=== PATIENT | male | born 1985 | race African-American/Black ===

== ENCOUNTER 2016-06-21 11:51 | Observation (INO) | payer BC ==
[~2016-06-21] VITALS: Ht 182.9 cm; Wt 73.6 kg
--- NOTE | ~2016-06-21 | HP ---
ADMIT: 06/21/2016 RM/LOC: [address] [facility] MR#: [id number] [address] [facility] [address] [place], [place] [id number] ALFA KEE [address] [facility] [address] [address] [place] [address] History and Physical SEX: M AGE: 31 : 1985 DATE OF SERVICE: CHIEF COMPLAINT: Vomiting. HISTORY OF PRESENT ILLNESS: Alfa is a 31-year-old male, who presents on 06/21 to the clinic with 5-day history of vomiting. He does have nausea with his vomiting, but he is having emesis every couple hours at this point. He was seen 3 days prior in the clinic with similar symptoms and his white count at that point was 16 and elevated segs at 84. His H. pylori was negative. He was given Zofran and started on routine omeprazole daily, but has not noticed any relief. Along with this vomiting, he does have stomach cramping right around the umbilicus, but this radiates slightly to the right. He has lost about 10 pounds total since this began just 5 to 7 days ago. He denies any cough, no shortness of breath, no fever, but he has had some chills with this. He states that about 6 months ago he had similar episode, but this lasted only about 3 to 4 days and went away on its own. He has never been diagnosed with an ulcer or any type of gastritis. He denies any alcohol intake. He does not take medications daily and no drug use. PAST MEDICAL HISTORY: Again, he is a healthy young man. He denies any surgical history. He did have chickenpox as kind and does occasionally get a migraine headache. FAMILY HISTORY: His father is in good health as well as his mother and denies any significant illness in parents. SOCIAL HISTORY: He denies any caffeine use. No chewing tobacco and no smoking history. He does not drink alcohol, does not use drugs. He lives with his at home. He works at [employer] and has no recent travel history. ALLERGIES: NO KNOWN MEDICAL ALLERGIES. REVIEW OF SYSTEMS: CONSTITUTIONAL: He denies any fever. HEAD: He denies any headache. EARS, NOSE, AND THROAT: He denies any sore throat. No ear pain or changes in hearing. No sore throat or trouble swallowing. CARDIOVASCULAR: He denies any chest pain or palpitation. PULMONARY: No dyspnea, no cough, and no wheezing. GASTROINTESTINAL: No dysphagia, no heartburn, and no diarrhea. GENITOURINARY: No hematuria, no increase in urinary frequency, and no dysuria. NEUROLOGICAL: He denies any dizziness. No confusion or changes in level of consciousness. SKIN: No rash. PHYSICAL EXAMINATION: VITAL SIGNS: Today; blood pressure is 122/68, heart rate was 48, temperature 97.2, oxygen saturation is 99%. Again, his BMI is in healthy range at 20.7 with a height of 74 inches, and weight of 161. Please note that baseline weight is usually around 172. GENERAL APPEARANCE: This is a well-developed, male in no ADMIT: 06/21/2016 RM/LOC: [address] [facility] MR#: [id number] [facility] [address] [id number] ALFA KEE [address] [place] [address] History and Physical SEX: M AGE: 31 : 1985 acute distress. NECK: Suppleness. There is no decrease in suppleness, and there were no thyroid abnormalities. HEENT: Ears; the TMs were normal without redness or bulging. Pharynx, the oropharynx showed no erythema, no exudate, no tonsillar enlargement. LUNGS: There is no wheezing or rhonchi heard. The respiratory rate showed no tachypnea and no use of accessory muscles. CARDIOVASCULAR: Heart rate and rhythm were normal. There were no murmurs heard. BACK: There is no CVA tenderness. ABDOMEN: Bowel sounds were hypoactive throughout all 4 quadrants. There was some abdominal tenderness in the umbilical area and slightly to the right upper and lower quadrants with deep palpation. No mass was palpated in the abdomen. Liver, this was not enlarged. NEUROLOGIC: He is oriented to time, place, and person, and gait was normal. SKIN: Color and pigmentation were normal. Moisture was normal. Temperature was normal. Mucous membranes were dry. ASSESSMENT: Nausea with vomiting and dehydration. PLAN: Reviewed labs today. We will admit him OPO and give him fluid bolus followed by maintenance fluids. We will obtain an ultrasound of the abdomen to rule out other abnormality. Further lab work ordered to do in a.m. and IV medications to control current fluid loss. Did consult with Dr. Mack today, who plans to see him in the hospital in the a.m. Vera Mcfarlane APRN, SHIMON-C / Genaro Mack MD / modl JOB #: [id number] CC: Genaro Mack MD, Attending Physician Genaro Mack MD, Family Physician
[2016-06-23] MEDS ORDERED: PRILOSEC DPS20 MG PO (16:23)
[2016-06-23] MEDS ORDERED: CARAFATE DPS1 GM PO (16:23)
[2016-06-23] MEDS ORDERED: ZOFRAN4 MG PO (16:23)
== END 2016-06-22 11:50 | disposition home or self-care (01) ==
LOC: 6PED 11:51
PROVIDERS: ADMIT Family Medicine
DX: R11.2 Nausea with vomiting, unspecified (principal); E86.0 Dehydration; G43.909 Migraine, unspecified, not intractable, without status migrainosus; Z88.8 Allergy status to other drugs, medicaments and biological substances